=== PATIENT | male | born 1995 | race Caucasian/White ===

== ENCOUNTER → 2024-05-26 | Day surgery (SDC) | payer MEDICAID ==
[~2024-05-26] VITALS: Ht 175.3 cm; Wt 117.9 kg
[~2024-05-26] MED LIST: BUPIVACAINE HCL/PF 0.5% (5MG/ML) 10ML ONE; FENTANYL CITRATE/PF 50MCG/ML 2ML VIAL ONE; FENTANYL CITRATE/PF 50MCG/ML 5ML VIAL ONE; GLYCOPYRROLATE 0.2 MG/ML 2ML VIAL ONE; HYDROMORPHONE HCL/PF 1MG/ML INJ ONE; LACTATED RINGERS 1,000 ML IV SCH; MIDAZOLAM HCL 2 MG/2 ML VIAL ONE; PROPOFOL 200MG/20ML VIAL IV ONE
[2024-05-26 10:24] LABS: BASOPHILS % 0.5 % (0.0-2.0); EOSINOPHILS % 0.6 % (0.0-5.0); HEMATOCRIT. 46.6 % (42.0-52.0); HEMOGLOBIN. 15.4 g/dL (14.0-18.0); LYMPHOCYTES % 21.2 % (20.0-50.0); MEAN CORPUSCULAR HEMOGLOBIN 30.4 pg (28.0-32.0); MEAN CORPUSCULAR VOLUME 92.1 fL (80.0-94.0); MEAN PLATELET VOLUME 8.2 fl (7.4-10.4); MONOCYTES % 5.3 % (2.0-8.0); NEUTROPHILS % 72.4 % (40.0-76.0); PLATELET 254 x1000/uL (130-400); RED BLOOD CELL COUNT 5.06 mill/uL (4.7-6.1); RED CELL DISTRIBUTION WIDTH 13.1 % (11.6-14.6)
[2024-05-26 10:30] LABS: CHLORIDE 107 mEq/L (98-107); POTASSIUM 3.9 mEq/L (3.5-5.1); SODIUM 142 mEq/L (136-145)
[2024-05-26 10:31] LABS: CALCIUM 9.6 mg/dL (8.7-10.4); CARBON DIOXIDE 25 mEq/L (21-32)
[2024-05-26 10:36] LABS: CREATININE 1.1 mg/dL (0.6-1.3); GLUCOSE 111 mg/dL (70-105); UREA NITROGEN BLOOD 12 mg/dL (9-23)
== END | disposition home or self-care (01) ==
LOC: OR 09:58
PROVIDERS: ATTEND Orthopaedic Surgery
DX: S83.242A Other tear of medial meniscus, current injury, left knee, initial encounter (principal); S83.512A Sprain of anterior cruciate ligament of left knee, initial encounter; M25.362 Other instability, left knee; Z79.899 Other long term (current) drug therapy; Z98.890 Other specified postprocedural states; X58.XXXA Exposure to other specified factors, initial encounter; Y93.89 Activity, other specified; Y92.89 Other specified places as the place of occurrence of the external cause; Y99.8 Other external cause status
CPT/HCPCS: 29888; 80048; 85025; 36415; 71045; 29882; 29879; J3010 ×2; J0665; J3490; J2250; J2704; J1171; C1713